=== PATIENT | male | born 1995 | race Caucasian/White ===

== ENCOUNTER 2018-06-04 08:49 | Emergency (ER) | payer OTHER ==
--- NOTE | 2018-06-04 09:21 | EDPHY ---
H & P Stated Complaint: ruptured spleen last sun / from hosp yesterday now with l shoulder pain Time Seen by Provider: 06/04/18 09:02 HPI/ROS: CHIEF COMPLAINT: Left shoulder pain HISTORY OF PRESENT ILLNESS: This is a 23-year-old male who was discharged from this hospital yesterday after being admitted for splenic rupture/hemorrhage secondary to mononucleosis. He has had no blunt trauma. He did require blood transfusion during the hospitalization but did not require operative treatment. He returns today complaining of severe left shoulder pain. He just this after sleeping on his left side. He has not been sleeping well and states that he has slept very little recently. He took Percocet and an Advil this morning with no relief. No shoulder injury. He has no neck pain. No numbness or weakness of the left arm. REVIEW OF SYSTEMS: A ten system review of systems was performed and is negative with the exception of the items mentioned in the HPI. Past medical history: Mononucleosis Past surgical history: Surgery on penis as Social history: He is here with his father and mother. He is a student at [employer] studying [employer]. He lives with roommates. No tobacco use. General Appearance: Alert. Vital signs reviewed. Eyes: Pupils equal and round, no conjunctival injection, no discharge. Anicteric. ENT, Mouth: Mucous membranes are moist, no oropharyngeal erythema or edema. Neck: No lymphadenopathy, supple. Respiratory: Lungs are clear to auscultation; no wheezes, rales, or rhonchi. Cardiovascular: Regular rate and rhythm; no murmur, rub, or gallop. Gastrointestinal: Abdomen is soft with tenderness in the left upper mid quadrants. No guarding. Bowel sounds are normal. Skin: Warm and dry, no rashes on exposed skin, normal color. Back: Nontender to palpation over the thoracolumbar spine. No CVAT. Extremities: No lower extremity edema, no calf tenderness or swelling. Neurological: Alert and oriented. Moving all four extremities easily and equally. Psychiatric: Normal affect. - Personal History Current Tetanus Diphtheria and Acellular Pertussis (TDAP): Yes - Medical/Surgical History Hx Asthma: No Hx Chronic Respiratory Disease: No Hx Diabetes: No Hx Cardiac Disease: No Hx Renal Disease: No Hx Cirrhosis: No Hx Alcoholism: No Hx HIV/AIDS: No Hx Splenectomy or Spleen Trauma: Yes Other PMH: PSHx: penis surgery as . spleen lac - Social History Smoking Status: Never smoked Constitutional: Initial Vital Signs Temperature (C) 36.7 C 06/04/18 08:53 Heart Rate 94 06/04/18 08:53 Respiratory Rate 17 06/04/18 08:53 Blood Pressure 123/58 H 06/04/18 08:53 O2 Sat (%) 91 L 06/04/18 08:53 O2 Delivery Mode Room Air Allergies/Adverse Reactions: No Known Allergies Allergy (Verified 06/04/18 08:53) Home Medications: Medication Instructions Recorded Acetaminophen [Tylenol 325mg (*)] 650 mg PO Q6HRS PRN tab 06/03/18 Ibuprofen [Motrin (*)] 600 mg PO Q6HRS PRN tab 06/03/18 Ondansetron Odt [Zofran Odt 4 mg 4 mg PO Q4 #30 tab 06/03/18 (*)] oxyCODONE/APAP 5/325 [Percocet 1 - 2 tab PO Q6 PRN #10 tab 06/03/18 5/325 (*)] Medical Decision Making ED Course/Re-evaluation: 23-year-old male with mononucleosis and subsequent splenomegaly and perisplenic hematoma who was discharged from the hospital yesterday. He presents with left shoulder pain that is new. He does not have fever. No shortness of breath, vomiting, or change in his abdominal pain. A CT scan of the abdomen and pelvis was obtained with contrast. This study shows a stable perisplenic hematoma with some increase in splenomegaly. Stable hemoperitoneum. There new moderate bilateral pleural effusions. CBC shows slight increase in hemoglobin hematocrit since yesterday. CT scan was reviewed by Dr. Duy Pelaez. No additional treatment recommended. CT scan results were relayed to the patient and to his parents. I do not suspect continued intra-abdominal bleeding. I have answered their questions to the best of my ability. I feel that he can safely return home and continue his current care. Danger signs were reviewed. Differential Diagnosis: Considered a differential diagnosis that includes but is not limited to splenic rupture, continued intra-abdominal bleeding, intra-abdominal infection, pneumonia. - Data Points Laboratory Results: Laboratory Results 06/04/18 09:22 Departure - Departure Disposition: Home, Routine, Self-Care Clinical Impression: Mononucleosis Condition: Good Instructions: Mononucleosis (ED) Additional Instructions: Follow up with Dr. Duy Pelaez in the office tomorrow as planned. Referrals: [facility] [Other] - As per Instructions Duy Pelaez MD [Medical Doctor] - As per Instructions
[2018-06-04 09:31] LABS: PLATELET COUNT 163 10^3/uL (150-400)
[2018-06-04] MEDS ORDERED: IOPAMIDOL (ISOVUE-300) 100 ML BTL ONE (09:45)
[2018-06-04 11:25] VITALS: BP 135/75
== END 2018-06-04 11:24 | disposition home or self-care (01) ==
DX: B27.90 Infectious mononucleosis, unspecified without complication (principal); M25.512 Pain in left shoulder
CPT/HCPCS: Q9967

== ENCOUNTER → 2018-06-12 | Outpatient (CLI) | payer OTHER | LOC: FLAB 11:50 | PROVIDERS: ATTEND Surgery | DX: J90 Pleural effusion, not elsewhere classified (principal); R16.1 Splenomegaly, not elsewhere classified ==

== ENCOUNTER 2018-06-17 12:05 | Emergency (ER) | payer OTHER ==
--- NOTE | 2018-06-17 12:37 | EDPHY ---
H & P Time Seen by Provider: 06/17/18 12:26 HPI/ROS: CHIEF COMPLAINT: Left upper quadrant abdominal pain HISTORY OF PRESENT ILLNESS: Admitted on 05/30 with splenic ruptured thought due to mononucleosis, was seen here on June [address], hematocrit was 31.9. Patient presents with left upper quadrant pain which is worse over the past 2 days. Moderate nature, not associated with vomiting or diarrhea, fever or chills, lightheadedness or syncope. REVIEW OF SYSTEMS: Eye: no change in vision ENT: Sore throat is improved, has little bit of a cough Cardiac: no chest pain or syncope Pulmonary: Not short of breath. Abdomen: HPI Musculoskeletal: no back pain Skin: no rash Neuro: no headache Constitutional: no fever : no urinary symptoms A comprehensive 10 point review of systems is otherwise negative aside from elements mentioned in the history of present illness. PAST MEDICAL HISTORY: Mononucleosis, penis surgery as a , splenic rupture as above. Social history: Nonsmoker General Appearance: Alert and conversant, cooperative. Eyes: No scleral icterus. ENT, Mouth: Normal mucous membranes. Respiratory: Normal respiratory effort, breath sounds equal, lungs are clear to auscultation. Cardiovascular: Regular rate and rhythm. Gastrointestinal: Mild left upper quadrant tenderness but no rebound or guarding. Neurological: Alert, face symmetric, normal motor and sensory in extremities. Skin: Warm and dry, no rashes. Musculoskeletal: No peripheral edema. Psychiatric: Not agitated. Emergency Department course/MDM: Patient wants to avoid imaging of possible. Plan for CBC and consultation with Dr. Pelaez his surgeon. Discussed with Christine Pelaez, recommends discharge with no further imaging, if hematocrit stable with office follow-up on Sunday. Discussed with patient at 1:50 p.m., he is comfortable with the plan. Smoking Status: Never smoked Constitutional: Initial Vital Signs Temperature (C) 36.5 C 06/17/18 12:09 Heart Rate 88 06/17/18 12:09 Respiratory Rate 18 06/17/18 12:09 Blood Pressure 115/60 06/17/18 12:09 O2 Sat (%) 97 06/17/18 12:09 O2 Delivery Mode Room Air Allergies/Adverse Reactions: No Known Allergies Allergy (Verified 06/17/18 12:08) Home Medications: Medication Instructions Recorded NK [No Known Home Meds] 06/17/18 Medical Decision Making - Data Points Laboratory Results: Laboratory Results 06/17/18 12:20 06/17/18 12:20 WBC 5.93 10^3/uL 10^3/uL (3.80-9.50) RBC 4.80 10^6/uL 10^6/uL (4.40-6.38) Hgb 14.1 g/dL g/dL (13.7-17.5) Hct 43.3 % % (40.0-51.0) MCV 90.2 fL fL (81.5-99.8) MCH 29.4 pg pg (27.9-34.1) MCHC 32.6 g/dL g/dL (32.4-36.7) RDW 14.6 % % (11.5-15.2) Plt Count 214 10^3/uL 10^3/uL (150-400) MPV 9.2 fL fL (8.7-11.7) Neut % (Auto) 42.2 % % (39.3-74.2) Lymph % (Auto) 47.4 % H % (15.0-45.0) [place] % (Auto) 8.3 % % (4.5-13.0) Eos % (Auto) 1.5 % % (0.6-7.6) Baso % (Auto) 0.3 % % (0.3-1.7) Nucleat RBC Rel Count 0.0 % % (0.0-0.2) Absolute Neuts (auto) 2.50 10^3/uL 10^3/uL (1.70-6.50) Absolute Lymphs (auto) 2.81 10^3/uL 10^3/uL (1.00-3.00) Absolute Monos (auto) 0.49 10^3/uL 10^3/uL (0.30-0.80) Absolute Eos (auto) 0.09 10^3/uL 10^3/uL (0.03-0.40) Absolute Basos (auto) 0.02 10^3/uL 10^3/uL (0.02-0.10) Absolute Nucleated RBC 0.00 10^3/uL 10^3/uL (0-0.01) Immature Gran % 0.3 % % (0.0-1.1) Immature Gran # 0.02 10^3/uL 10^3/uL (0.00-0.10) Departure - Departure Disposition: Home, Routine, Self-Care Clinical Impression: Rupture, spleen Abdominal pain Qualifiers: Abdominal location: left upper quadrant Qualified Code(s): R10.12 - Left upper quadrant pain Condition: Good Instructions: Non-penetrating Injuries to the Liver or Spleen (ED) Referrals: Duy Pelaez MD [Medical Doctor] - 06/19/18
[2018-06-17 12:54] LABS: PLATELET COUNT 214 10^3/uL (150-400)
[2018-06-17 14:10] VITALS: BP 128/82
== END 2018-06-17 14:09 | disposition home or self-care (01) ==
DX: R10.12 Left upper quadrant pain (principal)

== ENCOUNTER → 2018-08-28 | Outpatient (CLI) | payer OTHER ==
[~2018-08-28] MED LIST: IOPAMIDOL (ISOVUE-300) 100 ML BTL ONE
== END ==
LOC: FIMAGING 10:59
PROVIDERS: ATTEND Surgery
DX: D73.5 Infarction of spleen (principal); R10.12 Left upper quadrant pain
CPT/HCPCS: Q9967

== ENCOUNTER → 2018-09-06 | Outpatient (CLI) | payer OTHER ==
[~2018-09-06] MED LIST changes: -IOPAMIDOL (ISOVUE-300) 100 ML BTL ONE; +IOTHALAMATE MEG (CYSTO-CONRAY II) 250 ML VIAL BLADIN ONE; +LIDOCAINE 2% JELLY 20 ML (UROJECT) ONE
== END ==
LOC: FIMAGING 10:50
PROVIDERS: ATTEND Surgery
PROC: 3E0K3KZ Introduction of Other Diagnostic Substance into Genitourinary Tract, Percutaneous Approach (ICD-10-PCS; principal; 2018-09-06)
DX: N32.3 Diverticulum of bladder (principal)
CPT/HCPCS: Q9961

== ENCOUNTER 2018-11-02 05:30 | Emergency (ER) | payer OTHER ==
[2018-11-02 05:35] VITALS: BP 119/81
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
[2018-11-02] MEDS ORDERED: IBUPROFEN 800 MG TAB PO ONE (05:43)
== END 2018-11-02 07:30 | disposition home or self-care (01) ==
DX: S63.501A Unspecified sprain of right wrist, initial encounter (principal); X58.XXXA Exposure to other specified factors, initial encounter; Y93.83 Activity, rough housing and horseplay

== ENCOUNTER 2018-11-20 04:43 | Emergency (ER) | payer OTHER ==
[2018-11-20 04:49] VITALS: BP 144/76
[2018-11-20] MEDS ORDERED: IBUPROFEN 600 MG TAB PO ONE (05:38)
--- NOTE | 2018-11-20 05:49 | EDPHY ---
H & P Stated Complaint: diagnosed with flu 11/19, sob Time Seen by Provider: 11/20/18 05:30 HPI/ROS: Chief Complaint: Difficulty breathing, flu HPI: 23-year-old male was diagnosed with influenza yesterday. Patient has had 2 days of fever, sore throat, cough, congestion, body aches. She was seen in urgent care yesterday started on Tamiflu. He has not been taking ibuprofen acetaminophen. This morning he woke up and had increasing soreness in his throat and had the sensation of difficulty breathing because is scratchiness in his throat. He feels he is able to take full breaths and Advair. Has had some subjective fevers and chills. No nausea or vomiting. No diarrhea or constipation. No abdominal pain. ROS: 10 systems were reviewed and were negative except those elements noted in the HPI. PMH: Splenic rupture secondary to mononucleosis Social History: No smoking, no alcohol, no recreational drug use Family History: non-contributory Physical Exam: Gen: Awake, Alert, No Distress HEENT: Ears: Normal TMs Nose: no rhinorrhea Eyes: PERRLA, EOMI Mouth: Moist mucosa mild oropharyngeal erythema without edema or exudate Neck: Supple, no JVD, no lymphadenopathy Chest: nontender, lungs clear to auscultation Heart: S1, S2 normal, no murmur Abd: Soft, non-tender, no guarding Back: no CVA tenderness, no midline tenderness Ext: no edema, non-tender Skin: no rash Neuro: CN II-XII intact, Sensation grossly intact, Strength 5/5 in bilateral upper and lower extremities - Personal History Current Tetanus Diphtheria and Acellular Pertussis (TDAP): Yes - Medical/Surgical History Hx Asthma: No Hx Chronic Respiratory Disease: No Hx Diabetes: No Hx Cardiac Disease: No Hx Renal Disease: No Hx Cirrhosis: No Hx Alcoholism: No Hx HIV/AIDS: No Hx Splenectomy or Spleen Trauma: Yes Other PMH: PSHx: penis surgery as . spleen lac 06/18 - Social History Smoking Status: Never smoked Constitutional: Initial Vital Signs Temperature (C) 38.2 C 11/20/18 04:46 Heart Rate 87 11/20/18 04:46 Respiratory Rate 20 11/20/18 04:46 Blood Pressure 144/76 H 11/20/18 04:46 O2 Sat (%) 96 11/20/18 04:46 Allergies/Adverse Reactions: No Known Allergies Allergy (Verified 11/20/18 04:45) Home Medications: Medication Instructions Recorded NK [No Known Home Meds] 06/17/18 Medical Decision Making ED Course/Re-evaluation: Healthy well-appearing 23-year-old male with flu. He has normal vital signs, normal oxygenation. Lung exam is normal. He has some mild erythema of his oropharynx otherwise negative. Plan will be to discharge with supportive treatment. He has already started Tamiflu. Tylenol and Motrin, decongestants as needed, follow up with primary care. Departure - Departure Disposition: Home, Routine, Self-Care Clinical Impression: Influenza Condition: Good Instructions: Influenza (ED) Additional Instructions: Continue taking your Tamiflu as prescribed. Alternate acetaminophen (1000 mg) with ibuprofen (400 mg) every 4 hours as needed for fevers, chills, aches or pain. You may take [id number] decongestants or guaifenesin as needed for sore throat or cough. Follow up with primary care in 4-5 days if symptoms are not improving. Referrals: Will King MD [[facility] [place] Primary Care Provider] - As per Instructions
== END 2018-11-20 05:58 | disposition home or self-care (01) ==
DX: J11.1 Influenza due to unidentified influenza virus with other respiratory manifestations (principal)